=== PATIENT | male | born 1960 | race African-American/Black ===

== ENCOUNTER 2019-11-28 12:09 | Emergency (ER) | payer SELFPAY ==
--- NOTE | 2019-11-28 13:45 | RAD ---
FOUR VIEWS OF THE RIGHT KNEE: DATE: 11/28/2019. COMPARISON: None. HISTORY: Fall, injury. FINDINGS: There is mild/moderate medial compartment narrowing with mild osteophyte formation of the medial tibi al plateau. There is patellofemoral joint space narrowing with posterior patellar osteophyte formati on. No significant knee joint effusion. No displaced fracture or dislocation. IMPRESSION: Degenerative change. No acute osseous abnormality. POS: [facility]
== END 2019-11-28 13:14 | disposition home or self-care (01) ==
LOC: NAV ERS 12:09
DX: M25.561 Pain in right knee (principal); F17.210 Nicotine dependence, cigarettes, uncomplicated; V87.8XXA Person injured in other specified noncollision transport accidents involving motor vehicle (traffic), initial encounter